=== PATIENT | female | born 1945 | race African-American/Black ===

== ENCOUNTER 2022-05-04 10:27 | Emergency (ER) | payer OTHER ==
[~2022-05-04] VITALS: Ht 167.6 cm; Wt 80.0 kg
[2022-05-04 12:17] LABS: HEMATOCRIT. 32.4 % (36.0-48.0); HEMOGLOBIN. 10.6 g/dL (12.0-16.0); MEAN CORPUSCULAR HEMOGLOBIN 28.3 pg (28.0-32.0); MEAN CORPUSCULAR VOLUME 86.7 fL (81.0-99.0); MEAN PLATELET VOLUME 8.6 fl (7.4-10.4); PLATELET 162 x1000/uL (130-400); RED BLOOD CELL COUNT 3.74 mill/uL (4.2-5.4); RED CELL DISTRIBUTION WIDTH 17.3 % (11.6-14.6)
[2022-05-04 12:24] LABS: CHLORIDE 99 mEq/L (98-107)
[2022-05-04 13:29] LABS: PLATELET ESTIMATE NORMAL
[2022-05-04] MEDS ORDERED: SODIUM CHLORIDE 0.9% 1,000 ML IV ONE (13:45)
[2022-05-04] MEDS ORDERED: PIPERACILLIN/TAZ 3.375G PREMIX 50 ML IV ONE (15:30)
[2022-05-04] MEDS ORDERED: VANCOMYCIN 1G PREMIX 200 ML IV ONE (15:30)
[2022-05-04] MEDS ORDERED: ASPIRIN 325MG EC TABLET PO ONE (16:00)
[2022-05-04 21:10] VITALS: BP 181/86
== END 2022-05-04 21:19 | disposition short-term general hospital (02) ==
LOC: ER 10:27 → EDBEDREQ 13:36 → ER 21:19 → CANBEDREQ 05-05 00:46
DX: R41.82 Altered mental status, unspecified (principal); R55 Syncope and collapse; R77.8 Other specified abnormalities of plasma proteins; I10 Essential (primary) hypertension; Z20.822 Contact with and (suspected) exposure to COVID-19; Z86.73 Personal history of transient ischemic attack (TIA), and cerebral infarction without residual deficits; Z86.39 Personal history of other endocrine, nutritional and metabolic disease
CPT/HCPCS: 36415; 70450; 71045; 80053; 82962; 83605; 83880; 84484; 85025; 87040; 87426; 93005; 96361; 96365; 96366; 96368; 99291; C9803; J2543; J3370; J7030

== ENCOUNTER 2022-07-19 15:18 | Inpatient (IN) | payer OTHER ==
[~2022-07-19] VITALS: Ht 165.1 cm; Wt 51.7 kg
[2022-07-19 16:21] LABS: BG BASE EXCESS -6.4 mmol/L (-2.0-2.0); BG CARBOXYHEMOGLOBIN 0.6 % (0.5-1.5); BG DEOXYHEMOGLOBIN 8.4 % (0.0-5.0); BG FRACTION INSPIRED OXYGEN 21; BG HCO3 ACT 15.9 mmol/L (22.0-26.0); BG METHEMOGLOBIN 0.5 % (0.0-1.5); BG OXYGEN SATURATION 91.5 % (92.0-98.5); BG OXYHEMOGLOBIN 90.5 % (94.0-97.0); BG PH 7.438 (7.350-7.450); BG PO2 62.2 mmHg (75.0-100.0); BG SAMPLE SITE LEFT RADIAL; BG TOTAL HEMOGLOBIN 13.4 g/dL (12.0-18.0); BG VENT MODE ROOM AIR
[2022-07-19] MEDS ORDERED: AZITHROMYCIN 500 MG in DEXT 5% WATER 250 ML IV STA (18:51)
[2022-07-19 19:33] LABS: BASOPHILS % 0.3 % (0.0-2.0); EOSINOPHILS % 0.1 % (0.0-5.0); HEMOGLOBIN. 13.7 g/dL (12.0-16.0); LYMPHOCYTES % 8.6 % (20.0-50.0); MEAN CORPUSCULAR HEMOGLOBIN 28.9 pg (28.0-32.0); MEAN CORPUSCULAR VOLUME 90.8 fL (81.0-99.0); MEAN PLATELET VOLUME 8.9 fl (7.4-10.4); PLATELET 174 x1000/uL (130-400); RED BLOOD CELL COUNT 4.73 mill/uL (4.2-5.4); RED CELL DISTRIBUTION WIDTH 17.1 % (11.6-14.6)
[2022-07-19 19:40] LABS: CHLORIDE 112 mEq/L (98-107)
[2022-07-19 19:42] LABS: INR 1.1; PROTHROMBIN TIME 11.7 sec (9.6-11.0)
[2022-07-19] MEDS ORDERED: ASPIRIN 81MG TABLET PO ONE (20:30)
[2022-07-19] MEDS ORDERED: VANCOMYCIN 1G PREMIX 200 ML IV SCH (20:30)
[2022-07-19] MEDS ORDERED: ASPIRIN 81MG TABLET PO NR (22:30)
[2022-07-19] MEDS ORDERED: DOCUSATE SODIUM 100MG CAPSULE PO PRN (22:45)
[2022-07-19] MEDS ORDERED: CLONIDINE 0.1MG TABLET PO PRN (22:45)
[2022-07-19] MEDS ORDERED: GUAIFENESIN 200MG/10ML SUGAR FREE UDC PO PRN (22:45)
[2022-07-19] MEDS ORDERED: MAGNESIUM/ALUMINUM HYDROXIDE/SIMETHICONE 30ML UDC PO PRN (22:45)
[2022-07-19] MEDS ORDERED: NOREPINEPHRINE 8MG/250ML PMX 250 ML IV ONE (22:45)
[2022-07-19] MEDS ORDERED: AZTREONAM 1 G in DEXTROSE 5% WATER 50 ML IV SCH (23:15)
[2022-07-19] MEDS ORDERED: NOREPINEPHRINE 8 MG in DEXTROSE 5% WATER 250 ML IV PRN (23:15)
[2022-07-20] VITALS (7 sets, daily range): BP systolic 114–146; BP diastolic 63–84
[2022-07-20] MEDS ORDERED: AZTREONAM 1G in DEXTROSE 5% WATER 50ML IV SCH ×2 (01:00→18:00)
[2022-07-20] MEDS ORDERED: FAMOTIDINE 20MG/2ML VIAL IV SCH (09:00)
[2022-07-20] MEDS ORDERED: ENOXAPARIN 30MG/0.3ML SYR SUBCUT SCH (09:00)
[2022-07-20] MEDS ORDERED: ASPIRIN 81MG EC TABLET PO SCH (09:00)
[2022-07-20] MEDS ORDERED: ASPIRIN 81MG TABLET PO SCH (09:00)
[2022-07-20 09:13] LABS: BASOPHILS % 0.4 % (0.0-2.0); EOSINOPHILS % 0.7 % (0.0-5.0); HEMATOCRIT. 37.6 % (36.0-48.0); HEMOGLOBIN. 12.1 g/dL (12.0-16.0); LYMPHOCYTES % 18.6 % (20.0-50.0); MEAN CORPUSCULAR HEMOGLOBIN 29.4 pg (28.0-32.0); MEAN PLATELET VOLUME 8.9 fl (7.4-10.4); MONOCYTES % 7.3 % (2.0-8.0); PLATELET 147 x1000/uL (130-400); RED BLOOD CELL COUNT 4.13 mill/uL (4.2-5.4)
[2022-07-20 09:31] LABS: CREATINE KINASE MB FRACTION 3.2 ng/mL (0.5-3.6)
[2022-07-20 09:37] LABS: HDL CHOLESTEROL 54 mg/dL (40-59); LDL CHOLESTEROL 65 mg/dL (5-100); T4 FREE 1.71 ng/dL (0.76-1.46)
[2022-07-20 16:06] LABS: CHLORIDE 113 mEq/L (98-107)
[2022-07-20] MEDS ORDERED: DEXTROSE 50% WATER 50ML SYRINGE IV NR (20:15)
[2022-07-20] MEDS ORDERED: ATORVASTATIN CALCIUM 40MG TABLET PO SCH (21:00)
== END 2022-07-21 00:27 | disposition short-term general hospital (02) | DRG 280 ==
LOC: ER 15:18 → MICUSO 20:30 → EDBEDREQSVC 20:33 → EDBEDREQ 20:33 → EDBEDREQTM 20:33 → 5EST 07-20 12:44
PROVIDERS: ADMIT Hospitalist; ATTEND Hospitalist
DX: I21.4 Non-ST elevation (NSTEMI) myocardial infarction (principal); J96.91 Respiratory failure, unspecified with hypoxia; N18.6 End stage renal disease; I12.0 Hypertensive chronic kidney disease with stage 5 chronic kidney disease or end stage renal disease; R65.10 Systemic inflammatory response syndrome (SIRS) of non-infectious origin without acute organ dysfunction; Z20.822 Contact with and (suspected) exposure to COVID-19; R13.10 Dysphagia, unspecified; D72.810 Lymphocytopenia; E78.5 Hyperlipidemia, unspecified; E05.90 Thyrotoxicosis, unspecified without thyrotoxic crisis or storm; Z88.0 Allergy status to penicillin; Z88.8 Allergy status to other drugs, medicaments and biological substances; Z99.2 Dependence on renal dialysis; Z74.01 Bed confinement status; Z79.899 Other long term (current) drug therapy; Z86.16 Personal history of COVID-19; Z86.73 Personal history of transient ischemic attack (TIA), and cerebral infarction without residual deficits; Z88.1 Allergy status to other antibiotic agents; Z88.6 Allergy status to analgesic agent; Z93.1 Gastrostomy status
CPT/HCPCS: 36415; 36600; 71045; 80053; 80061; 82375; 82550; 82553; 82805; 82962; 83605; 84145; 84439; 84443; 84484; 85025; 85379; 87426; 93005; 99291; C9803; J0456; J1650; J3370; J3490; J7060